=== PATIENT | female | born 1975 | race Caucasian/White ===

== ENCOUNTER 2017-09-18 06:12 | Inpatient (IN) | payer OTHER ==
[2017-09-13 13:31] VITALS: BMI 27.0
[2017-09-18] MEDS ORDERED: HYDROmorphone HCL CARPU-JECT 1 MG/1 ML DISP.SYRIN IVPB PRN (06:50)
[2017-09-18] MEDS ORDERED: CEFAZOLIN 2 GM in DEXTROSE 5%-WATER - 100 ML IVPB ONE (06:57)
--- NOTE | 2017-09-18 07:04 | HP ---
History & Physical Update - History History: No Change - Physical Physical: No Change - Assessment Assessment: No Change - Plan Plan: No Change
--- NOTE | 2017-09-18 07:19 | OP ---
Operative Note - Note: Operative Date: 09/18/17 Pre-Operative Diagnosis: Leiomyomatous uterus Operation: Total Abdominal Hysterectomy. bilateral salpingectomy Findings: Leiomyomatous Uterus Post-Operative Diagnosis: Same as Pre-op Surgeon: Josie Gaytan Guard Supervisor: Consuelo Darby Anesthesia: General Operative Report Dictated: Yes
[2017-09-18] MEDS ORDERED: MIDAZOLAM HCL 2 MG/2 ML SINGLE DOSE VIAL ONE (07:28)
[2017-09-18] MEDS ORDERED: fentaNYL CITRATE 250 MCG/5 ML VIAL ONE (07:41)
[2017-09-18] MEDS ORDERED: ROCURONIUM BROMIDE 50 MG/5 ML VIAL ONE ×2 (07:45→08:21)
[2017-09-18] MEDS ORDERED: ceFAZolin SODIUM 1 GM VIAL IVPB ONE (07:49)
[2017-09-18] MEDS ORDERED: DEXAMETHASONE SOD PHOSPHATE 4 MG/1 ML VIAL ONE (08:02)
[2017-09-18] MEDS ORDERED: LIDOCAINE HCL 2% JELLY (5 ML/TUBE) ONE (08:04)
[2017-09-18] MEDS ORDERED: LIDOCAINE HCL/PF 2% SDV 5ML VIAL ONE (08:04)
[2017-09-18] MEDS ORDERED: ceFAZolin SODIUM 1 GM VIAL ONE (08:05)
[2017-09-18] MEDS ORDERED: ONDANSETRON 4 MG/2 ML VIAL IVPUSH PRN ×2 (08:35)
[2017-09-18] MEDS ORDERED: PROMETHAZINE HCL 25 MG/1 ML VIAL IVPB PRN (08:35)
[2017-09-18] MEDS ORDERED: DEXAMETHASONE SOD PHOSPHATE 4 MG/1 ML VIAL IVPUSH ONE (08:35)
[2017-09-18] MEDS ORDERED: LACTATED RINGERS SOLUTION 1,000 ML IV SCH (08:45)
[2017-09-18] MEDS ORDERED: HYDROmorphone *PCA* 10MG/50ML DISP.SYRIN PCA SCH (08:45)
[2017-09-18] MEDS ORDERED: NEOSTIGMINE METHYLSULFATE 0.5 MG/ML - 10 ML MDV ONE (08:54)
[2017-09-18] MEDS ORDERED: GLYCOPYRROLATE 0.2 MG/1 ML VIAL ONE (08:54)
[2017-09-18] MEDS ORDERED: HYDROmorphone *PCA* 10MG/50ML DISP.SYRIN PCA ONE (09:31)
[2017-09-18] MEDS ORDERED: CEFAZOLIN 1 GM PUSH 1 GM/10 ML DISP.SYRIN IVPUSH SCH (10:00)
[2017-09-18] MEDS: DEXTROSE 5%-LACTATED RINGERS 1,000 ML IV SCH ×2 (11:30→21:33)
[2017-09-18] MEDS: IBUPROFEN 800 MG/8 ML IJ IVPB PRN (15:28)
[2017-09-18] MEDS: CEFAZOLIN 1 GM PUSH 1 GM/10 ML DISP.SYRIN IVPUSH SCH (17:18)
--- NOTE | 2017-09-18 17:20 | OP ---
DATE OF OPERATION: 09/18/2017 PREOPERATIVE DIAGNOSES: Dysmenorrhea, leiomyomatous uterus, anemia, and menorrhagia. OPERATION: Total abdominal hysterectomy, bilateral salpingectomy, and left ovarian cystectomy. SURGEON: Sabiha Gaytan MD SELLING UNDERWRITER: Consuelo Darby DO ANESTHESIA: General. DESCRIPTION OF PROCEDURE: Patient was taken to the operating room, placed in supine position, prepped and draped in usual sterile fashion. A timeout was performed in accordance to hospital regulation. Maurer catheter was inserted into the bladder. A Pfannenstiel skin incision was made with the scalpel. Cautery was then used to go through the layers of abdominal wall to the level of the fascia. Fascia was cut in the midline. Cautery was then used to open the fascia in the following fashion. Samantha was then used to bluntly and sharply dissect the rectus muscle off the fascia. Muscles split in the midline, and peritoneal cavity was then entered and carried upward and downward. A leiomyomatous uterus was exteriorized, approximately 12 weeks in size. Uterus was then elevated out of the operative field. Bowel was packed out of the operative field. Ovary noted to have a 3-cm ovarian cyst. Tubes were noticed to be normal. Round ligament was identified and clamped and cut using LigaSure. Vesicouterine reflection was then entered using Metzenbaum scissors and pickups. Bladder was bluntly dissected out of the operative field. The utero-ovarian ligament was identified and clamped and cut. Uterine arteries were then skeletonized, and bilaterally, the uterine arteries were then clamped and cut. Cardinal ligament was identified and clamped and cut down to the level of the cervix. Vagina was then entered anteriorly, and Venu scissors were then used to cut the cervix away from the vagina. Cervix and uterus were then handed off for specimen, and vagina was then closed using 0 Vicryl suture in a continuous and locking stitch. Tubes were bilaterally grasped with ligature and removed, and ovarian cyst was then removed on the left side, submitted to Pathology. Hemostasis was achieved. Some Interceed was placed. Packing was then removed. Pack count was noted to be normal. Abdominal sweep done. Peritoneal cavity was then closed using 0 Vicryl suture. Muscles approximated in the midline using 0 Vicryl suture, and fascia was then closed using 0 Vicryl suture in 2 parts. Then, 2-0 was used to close the subcutaneous in interrupted sutures, and 3-0 Biosyn was then used to close the skin in a subcuticular fashion. Wound was washed and dressed. The patient had tolerated the procedure well. Steri-Strips placed. ESTIMATED BLOOD LOSS: 500 mL SABIHA GAYTAN M.D. [id number]
[2017-09-19] MEDS: CEFAZOLIN 1 GM PUSH 1 GM/10 ML DISP.SYRIN IVPUSH SCH (00:01)
[2017-09-19] MEDS: IBUPROFEN 800 MG/8 ML IJ IVPB PRN (05:03)
[2017-09-19] MEDS: DEXTROSE 5%-LACTATED RINGERS 1,000 ML IV SCH (05:03)
[2017-09-19] MEDS ORDERED: oxyCODONE HCL 5 MG TABLET PO PRN (06:50)
[2017-09-19] MEDS ORDERED: BISACODYL 10 MG SUPP.RECT PR PRN (06:58)
[2017-09-19] MEDS ORDERED: PCA PUMP KEY 1 EACH EACH ONE (08:47)
[2017-09-19] MEDS: oxyCODONE HCL 5 MG TABLET PO PRN ×2 (10:38→19:43)
[2017-09-19] MEDS: ACETAMINOPHEN 325 MG TABLET (FP) PO PRN ×2 (10:38→19:43)
[2017-09-19] MEDS: ENOXAPARIN NA (PORCINE) 40 MG/0.4 ML DISP.SYRIN SQ SCH (10:39)
--- NOTE | 2017-09-19 10:39 | PN ---
Progress Note, Physician Chief Complaint: Post op History of Present Illness: 41 yo with h/o fibroid uterus is status post hysterectomy. She's seen and evaluated, doing well. She's ambulating. - Current Medication List Current Medications: Active Medications Acetaminophen (Tylenol -) 650 mg PO Q4H PRN PRN Reason: FEVER OR PAIN Bisacodyl (Dulcolax Suppository -) 10 mg [place] DAILY PRN PRN Reason: CONSTIPATION Enoxaparin Sodium (Lovenox -) 40 mg SQ DAILY EDWIN Hydromorphone HCl (Dilaudid Injection -) 1 mg IVPB Q4H PRN PRN Reason: PAIN Dextrose/Lactated Ringer's (D5-Lr -) 1,000 mls @ 125 mls/hr IV ASDIR EDWIN Last Admin: 09/19/17 05:03 Dose: 125 mls/hr Ibuprofen (Caldolor Injection -) 800 mg IVPB Q8H PRN PRN Reason: FEVER Last Admin: 09/19/17 05:03 Dose: 800 mg Ondansetron HCl (Zofran Injection) 4 mg IVPUSH Q6H PRN PRN Reason: NAUSEA AND/OR VOMITING Ondansetron HCl (Zofran Injection) 4 mg IVPUSH Q4H PRN PRN Reason: NAUSEA AND/OR VOMITING Oxycodone HCl (Roxicodone -) 10 mg PO Q4H PRN PRN Reason: PAIN Oxycodone HCl (Roxicodone -) 5 mg PO Q4H PRN PRN Reason: PAIN Promethazine HCl (Phenergan Injection -) 12.5 mg IVPB Q6H PRN PRN Reason: NAUSEA AND/OR VOMITING - Objective Vital Signs: Vital Signs Temperature 99.0 F 09/19/17 05:07 Pulse Rate 72 09/19/17 05:07 Respiratory Rate 18 09/19/17 05:07 Blood Pressure 108/70 09/19/17 05:07 O2 Sat by Pulse Oximetry (%) 100 09/18/17 21:00 Constitutional: Yes: Well Nourished Eyes: Yes: Conjunctiva Clear HENT: Yes: Atraumatic Neck: Yes: Supple, Trachea Midline Cardiovascular: Yes: Regular Rate and Rhythm, S1, S2 Respiratory: Yes: WNL Gastrointestinal: Yes: Normal Bowel Sounds Genitourinary: Yes: WNL Musculoskeletal: Yes: WNL Extremities: Yes: WNL Wound/Incision: Yes: Clean/Dry, Dressing Dry and Intact Neurological: Yes: Alert, Oriented ...Motor Strength: WNL Psychiatric: Yes: Alert, Oriented Problem List - Problems (1) Status post hysterectomy Code(s): Z90.710 - ACQUIRED ABSENCE OF BOTH CERVIX AND UTERUS (2) Leiomyoma of body of uterus Code(s): D25.9 - LEIOMYOMA OF UTERUS, UNSPECIFIED Assessment/Plan Leiomyoma of the uterus Status post hysterectomy Ambulation Analgesia as needed Regular diet Continue post op care
[2017-09-19 12:17] LABS: BASOPHIL 0.8 % (0-2.0); EOSINOPHIL 0.1 % (0-4.5); MCH 26.9 pg (25.7-33.7); MCHC 32.5 g/dl (32.0-36.0); MEAN CELL VOLUME 82.9 fl (80-96); MEAN PLT VOLUME 7.9 fl (7.5-11.1); NEUTROPHILS 76.3 % (42.8-82.8); PLATELET COUNT 334 K/MM3 (134-434); WHITE BLOOD COUNT 5.9 K/mm3 (4.0-10.0)
[2017-09-19 12:55] LABS: ANION GAP 9 (8-16); CALCIUM 8.6 mg/dL (8.5-10.1); CO2 25 mmol/L (21-32); CREATININE 0.5 mg/dL (0.55-1.02); GLUCOSE,RANDOM 98 mg/dL (74-106)
--- NOTE | 2017-09-19 15:11 | PATH ---
Surgical Pathology Report Patient Name: GURPREET JAMIL [facility]. Rec. #: [id number] /Age/Gender: 1975 (Age: 41) / F Account: [id number] Location: [facility] OBS/LAPPER Taken: 09/18/2017 Received: 09/18/2017 Reported: 09/19/2017 Physicians: Josie Gaytan M.D. Specimen(s) Received A: CERVIX UTERUS AND BILATERAL FALLOPIAN TUBES B: OVARIAN CYST C: PARAOVARIAN CYST Clinical History Menorrhagia, anemia, leiomyoma of the uterus Final Diagnosis A. UTERUS AND CERVIX WITH BILATERAL FALLOPIAN TUBES, HYSTERECTOMY AND BILATERAL SALPINGECTOMY: UTERUS AND CERVIX, 374 GRAMS, WITH LEIOMYOMATA, DYSSYNCHRONOUS ENDOMETRIUM, AND CERVIX WITH ACUTE AND CHRONIC INFLAMMATION. BENIGN BILATERAL FALLOPIAN TUBES PRESENT. B. OVARIAN CYST, SIDE NOT SPECIFIED, EXCISION: HEMORRHAGIC LUTEAL CYST. C. PARAOVARIAN CYST, SIDE NOT SPECIFIED, EXCISION: BENIGN SEROUS CYST. Electronically Signed Newton Gray M.D. Gross Description A. Received in formalin labeled "uterus, cervix and bilateral fallopian tubes," is a 374 g uterus with an attached cervix and an attached right fallopian tube. The left fallopian tube is separately received within the same container. The specimen measures 11.5 cm from superior to inferior, 8.3 cm from left to right and 8.0 cm from anterior to posterior. The serosa is pink-hooper and smooth. The attached cervix measures 3 cm in length and averages 3 cm in diameter. The ectocervix is pink-hooper, smooth and glistening. The endocervix is unremarkable. The endometrial cavity measures 6.5 cm in length and 5.0 cm from cornu to cornu. The endometrium is hooper-brown and averages 0.2 cm in thickness. There is a 5.0 cm in greatest dimension bulging submucosal nodule present. The myometrium displays abundant intramural nodules measuring up to 3.8 cm in greatest dimension. The cut surface of the submucosal and intramural nodules is hooper, firm to rubbery and displays whorled architecture. No areas of hemorrhage or necrosis are identified. The remaining myometrium is hooper-pink and measures up to 3.8 cm in thickness. The attached right fimbriated fallopian tube measures 5 cm in length. The outer surface is shields purple with a 1.4 cm greatest dimension paratubal cyst attached to the fimbria. Sectioning of the right fallopian tube reveals a hemorrhagic lumen. The separately received left fimbriated fallopian tube measures 3 cm in length. The outer surface is novoa purple and smooth. Sectioning reveals a focally dilated lumen. Gym Teacher sections are submitted in 14 cassettes as follows: 1-anterior cervix; 2-posterior cervix; 5-8-lsbtfogk endomyometrium; 9-6-zfwbbkpry endomyometrium; 1-8-jmaglxurka nodule; 0-45-lzabspmlwp nodules; 11-right fallopian tube fimbria and paratubal cyst; 12-cross sections of right fallopian tube; 13-left fallopian tube fimbria; 14-cross sections of left fallopian tube. B. Received in formalin labeled "ovarian cyst," is a 2.1 x 1.7 x 1.2 cm intact cyst. The outer surface is hooper-pink and smooth. Sectioning reveals a hemorrhagic corpus luteum. The specimen is entirely submitted in 2 cassettes. C. Received in formalin labeled "paraovarian cyst," is a 1.5 x 1.2 x 1.0 cm intact cyst. The outer surface is hooper-pink and smooth. The lumen contains clear serous fluid. The inner lining of the cyst is smooth. The specimen is serially sectioned and business center representative sections are submitted in one cassette. 09/18/201709/18/2017
--- NOTE | 2017-09-19 15:17 | PN ---
Progress Note (short form) - Note Progress Note: Anesthesia POD#1 S/P LISSY Bilateral Salpingectomy under GA and SKEIN WINDING OPERATOR VSS,no N/V,Pain is controlled,SKEIN WINDING OPERATOR is disconnected. Walking around as well. Edie Gonzales MD.
--- NOTE | 2017-09-20 07:30 | PN ---
Progress Note (SOAP) - Subjective Chief Complaint: Pt doing well + flatus desires to go home - Current Medications Current Medications: Active Medications Acetaminophen (Tylenol -) 650 mg PO Q4H PRN PRN Reason: FEVER OR PAIN Last Admin: 09/19/17 19:43 Dose: 650 mg Bisacodyl (Dulcolax Suppository -) 10 mg [place] DAILY PRN PRN Reason: CONSTIPATION Last Admin: 09/19/17 19:44 Dose: 10 mg Enoxaparin Sodium (Lovenox -) 40 mg SQ DAILY EDWIN Last Admin: 09/19/17 10:39 Dose: 40 mg Hydromorphone HCl (Dilaudid Injection -) 1 mg IVPB Q4H PRN PRN Reason: PAIN Ibuprofen (Caldolor Injection -) 800 mg IVPB Q8H PRN PRN Reason: FEVER Last Admin: 09/19/17 05:03 Dose: 800 mg Ondansetron HCl (Zofran Injection) 4 mg IVPUSH Q6H PRN PRN Reason: NAUSEA AND/OR VOMITING Ondansetron HCl (Zofran Injection) 4 mg IVPUSH Q4H PRN PRN Reason: NAUSEA AND/OR VOMITING Oxycodone HCl (Roxicodone -) 10 mg PO Q4H PRN PRN Reason: PAIN Oxycodone HCl (Roxicodone -) 5 mg PO Q4H PRN PRN Reason: PAIN Last Admin: 09/19/17 19:43 Dose: 5 mg Promethazine HCl (Phenergan Injection -) 12.5 mg IVPB Q6H PRN PRN Reason: NAUSEA AND/OR VOMITING - Objective Vital Signs: Vital Signs Temperature 99.1 F 09/20/17 06:00 Pulse Rate 68 09/20/17 06:00 Respiratory Rate 18 09/20/17 06:00 Blood Pressure 109/68 09/20/17 06:00 O2 Sat by Pulse Oximetry (%) 100 09/18/17 21:00 Constitutional: Yes: Well Nourished, No Distress Gastrointestinal: Yes: WNL, Normal Bowel Sounds, Soft Breast(s): Yes: WNL Musculoskeletal: Yes: WNL Extremities: Yes: WNL Wound/Incision: Yes: Clean/Dry, Well Approximated, Steri Strips, Open to air Labs Lab Results: CBC, BMP 09/19/17 12:13 09/19/17 12:13 Assessment/Plan sp Gucci bilateral salpingectomy POD1 Plan DC home RTO 1 week
[2017-09-20 08:07] VITALS: BP 116/72; PULSE 76; TEMP 98.9
[2017-09-20] MEDS: ACETAMINOPHEN 325 MG TABLET (FP) PO PRN (09:19)
[2017-09-20] MEDS: ENOXAPARIN NA (PORCINE) 40 MG/0.4 ML DISP.SYRIN SQ SCH (09:20)
== END 2017-09-20 10:20 | disposition home or self-care (01) | DRG 519 ==
LOC: JSAMEDAYSX 06:12 → EDSTATUS 10:00 → J3W 11:43
PROVIDERS: ADMIT Obstetrics & Gynecology; ATTEND Obstetrics & Gynecology
PROC: 0UT70ZZ Resection of Bilateral Fallopian Tubes, Open Approach (ICD-10-PCS; 2017-09-18)
PROC: 0UB10ZZ Excision of Left Ovary, Open Approach (ICD-10-PCS; 2017-09-18)
PROC: 0UT90ZZ Resection of Uterus, Open Approach (ICD-10-PCS; principal; 2017-09-18 07:30)
DX: D25.9 Leiomyoma of uterus, unspecified (principal); N94.6 Dysmenorrhea, unspecified; N83.8 Other noninflammatory disorders of ovary, fallopian tube and broad ligament; D64.9 Anemia, unspecified; N92.0 Excessive and frequent menstruation with regular cycle
CPT/HCPCS: 36415; 80048; 84703; 85025; 88305-TC; 88307-TC

== ENCOUNTER 2022-03-29 04:17 | Day surgery (SDC) | payer OTHER ==
[2022-03-28 12:22] VITALS: BMI 29.2
[2022-03-29] MEDS ORDERED: MIDAZOLAM HCL 2 MG/2 ML SINGLE DOSE VIAL ONE ×2 (14:58)
[2022-03-29] MEDS ORDERED: ceFAZolin SODIUM 1 GM VIAL IVPB ONE (15:05)
[2022-03-29 16:35] VITALS: BP 114/77; PULSE 64; TEMP 97.8
== END 2022-03-29 16:20 | disposition home or self-care (01) ==
LOC: JASU-SURG 04:17
PROVIDERS: ATTEND Urology
PROC: 0TF4XZZ Fragmentation in Left Kidney Pelvis, External Approach (ICD-10-PCS; principal; 2022-03-29 14:00)
DX: N20.0 Calculus of kidney (principal)